=== PATIENT | female | born 1975 | race Caucasian/White ===

== ENCOUNTER 2021-03-03 15:55 | Inpatient (IN) | payer MEDICAID, OTHER ==
[~2021-03-03] VITALS: Ht 147.3 cm; Wt 66.2 kg
[2021-03-03] MEDS ORDERED: MORPHINE SULFATE 4 MG/ML CPJ (NOT FOR IM USE) IV STA (16:47)
[2021-03-03] MEDS ORDERED: ONDANSETRON HCL 4MG/2ML INJ IV STA (16:47)
[2021-03-03] MEDS ORDERED: SODIUM CHLORIDE 0.9% 1,000 ML IV ONE (17:00)
[2021-03-03 17:05] LABS: CLARITY URINE CLEAR (CLEAR); COLOR URINE YELLOW (YELLOW); KETONES URINE NEGATIVE (NEGATIVE); LEUKOCYTE ESTERASE URINE NEGATIVE (NEGATIVE); NITRITE URINE NEGATIVE (NEGATIVE); OCCULT BLOOD URINE NEGATIVE (NEGATIVE); PH URINE 7.5 (4.5-8.0); PROTEIN URINE NEGATIVE (NEGATIVE); SPECIFIC GRAVITY URINE 1.025 (1.005-1.030); UROBILINOGEN URINE 0.2 E.U./dL (0.2-1.0)
[2021-03-03 17:17] LABS: *AMPHETAMINES SCREEN URINE NEGATIVE (NEGATIVE)
[2021-03-03 17:18] LABS: *BARBITURATES SCREEN URINE NEGATIVE (NEGATIVE); *BENZODIAZEPINES SCREEN URINE NEGATIVE (NEGATIVE); *COCAINE SCREEN URINE NEGATIVE (NEGATIVE); METHADONE URINE SCREEN NEGATIVE (NEGATIVE); OPIATES URINE SCREEN NEGATIVE (NEGATIVE); PHENCYCLIDINE URINE SCREEN NEGATIVE (NEGATIVE)
[2021-03-03 17:19] LABS: CANNABINOID URINE SCREEN NEGATIVE (NEGATIVE)
[2021-03-03 18:05] LABS: BASOPHILS % 0.5 % (0.0-2.0); EOSINOPHILS % 1.9 % (0.0-5.0); HEMATOCRIT. 42.8 % (36.0-48.0); HEMOGLOBIN. 15.2 g/dL (12.0-16.0); LYMPHOCYTES % 45.1 % (20.0-50.0); MEAN CORPUSCULAR HEMOGLOBIN 34.3 pg (28.0-32.0); MEAN CORPUSCULAR VOLUME 96.1 fL (81.0-99.0); MEAN PLATELET VOLUME 8.4 fl (7.4-10.4); MONOCYTES % 8.7 % (2.0-8.0); NEUTROPHILS % 43.8 % (40.0-76.0); PLATELET 235 x1000/uL (130-400); RED BLOOD CELL COUNT 4.45 mill/uL (4.2-5.4); RED CELL DISTRIBUTION WIDTH 12.8 % (11.6-14.6)
[2021-03-03 18:12] LABS: CHLORIDE 104 mEq/L (98-107)
[2021-03-03 18:16] LABS: ETHANOL BLOOD < 10 mg/dL
[2021-03-03 19:00] LABS: INR 0.9; PROTHROMBIN TIME 10.1 sec (9.6-11.0)
[2021-03-03] MEDS ORDERED: MORPHINE SULFATE 4 MG/ML CPJ (NOT FOR IM USE) IV ONE ×2 (20:30→20:45)
[2021-03-03] MEDS ORDERED: FENTANYL CITRATE/PF 50MCG/ML 2ML VIAL IV ONE (22:15)
[2021-03-03] MEDS ORDERED: IOHEXOL-300 100 ML BOTTLE ONE (23:20)
[2021-03-04 00:19] VITALS: BP 117/71
[2021-03-04] MEDS ORDERED: IBUP-2741 MT (00:38)
[2021-03-04] MEDS ORDERED: OMEP20CA14 MT (00:38)
[2021-03-04] MEDS ORDERED: ATOR20TA65 MT (00:38)
[2021-03-04] MEDS ORDERED: SITA50TA3 MT (00:38)
[2021-03-04] MEDS ORDERED: METF-414 MT (00:38)
[2021-03-04] MEDS ORDERED: ONDANSETRON HCL 4MG/2ML INJ IV PRN (03:15)
[2021-03-04] MEDS ORDERED: DEXTROSE 50% WATER 50ML SYRINGE IV PRN (03:15)
[2021-03-04] MEDS: MORPHINE SULFATE 2 MG/ML CPJ (NOT FOR IM USE) IV PRN ×2 (03:33→08:40)
[2021-03-04 05:33] LABS: HEMATOCRIT 41.3 % (36.0-48.0); HEMOGLOBIN 14.5 g/dL (12.0-16.0); MEAN CORPUSCULAR HEMOGLOBIN 33.7 pg (28.0-32.0); PLATELET 224 x1000/uL (130-400); RED CELL DISTRIBUTION WIDTH 12.8 % (11.6-14.6)
[2021-03-04 05:38] LABS: CHLORIDE 105 mEq/L (98-107)
[2021-03-04] MEDS: BLOOD SUGAR DIAGNOSTIC STRIP TEST SCH ×2 (07:45→11:55)
[2021-03-04 08:00] VITALS: BP 97/46
[2021-03-04] MEDS: INSULIN LISPRO 100 UNITS/ML SUBCUT SCH ×2 (08:33→12:13)
[2021-03-04 12:00] VITALS: BP 93/57
[2021-03-04] MEDS ORDERED: INSULIN GLARGINE UD 100 UNITS/ML SYR SUBCUT NR ×2 (12:34→13:30)
[2021-03-04] MEDS ORDERED: INSU100I28 SQ (13:26)
[2021-03-04] MEDS ORDERED: HYDR-4001 MT (13:26)
[2021-03-04 14:39] VITALS: BP 101/58
[2021-03-04 15:56] VITALS: BP 121/78
[2021-03-04] MEDS ORDERED: INSULIN GLARGINE UD 100 UNITS/ML SYR SUBCUT SCH (22:00)
== END 2021-03-04 16:09 | disposition home or self-care (01) | DRG 532 ==
LOC: ER 15:55 → 6EST 18:10 → EDBEDREQ 18:12 → EDBEDREQTM 18:12 → ENRESERV 19:18
PROVIDERS: ADMIT Internal Medicine; ATTEND Internal Medicine
DX: N83.01 Follicular cyst of right ovary (principal); E11.65 Type 2 diabetes mellitus with hyperglycemia; E66.9 Obesity, unspecified; E78.00 Pure hypercholesterolemia, unspecified; Z68.30 Body mass index [BMI] 30.0-30.9, adult
CPT/HCPCS: 36415; 74177; 76830; 76856; 80053; 80305; 80320; 81003; 82962; 83036; 83605; 85025; 85027; 86850; 86900; 93005; 99285; J1815; J2270; J2405; J3010; J7030; Q9967; G0480